=== PATIENT | male | born 1965 | race Caucasian/White ===

== ENCOUNTER 2019-10-04 14:32 | Observation (INO) ==
--- NOTE | 2019-10-04 15:12 | EKG Report ---
Test Performed on : 10/04/2019 2:45:52 PM Test Reason : SOB Blood Pressure : / mmHG Vent. Rate : 129 BPM Atrial Rate : 129 BPM P-R Int : 138 ms QRS Dur : 076 ms QT Int : 290 ms P-R-T Axes : 024 -20 023 degrees QTc Int : 424 ms Sinus tachycardia. Minimal voltage criteria for LVH, may be normal variant Inferior infarct , age undetermined Abnormal ECG When compared with ECG of 15-SEP-2017 09:45, Inferior infarct is now present Unconfirmed Result
--- NOTE | 2019-10-04 15:26 | Diag Imaging Result Doc PS360 ---
EXAM: CHEST-2 VIEWS 10/04/2019 HISTORY: SOB TECHNIQUE: PA and lateral chest COMMENT: There is no evidence of acute cardiac or pulmonary disease. Compared to 04/02/2019 there has been no significant change in the appearance of the chest. IMPRESSION: No evidence of acute disease. Electronically signed by Michele Snyder 10/04/2019 3:23 PM
[2019-10-04 15:37] LABS: BASO# 0.02 X1000 (0.0-0.2); BASO% 0.2 % (0.0-0.8); HEMATOCRIT 50.9 % (42.0-52.0); HEMOGLOBIN 16.6 g/dL (14.0-18.0); IMM GRAN# 0.02 X1000 (0.0-0.04); IMM GRAN% 0.2 % (0.0-0.5); LYMPH# 2.29 X1000 (1.2-3.4); LYMPH% 22.8 % (20.5-51.1); MCHC 32.6 g/dL (33-37); MCV 82.9 FL (81-99); MONO# 0.81 X1000 (0.11-0.59); MONO% 8.1 % (1.7-9.3); MPV 9.3 FL (7.4-10.4); NEUT% 67.7 % (42.2-75.2); PLT 289 X1000 (130-400); RBC 6.14 XMIL (4.7-6.1); RDW 14.7 % (11.5-14.5); WBC 10.04 X1000 (4.8-10.8)
[2019-10-04 15:39] LABS: INR 1.16
[2019-10-04 15:40] LABS: PTT 33.1 Seconds (22.3-41.8)
[2019-10-04 15:48] LABS: ALB/GLOB RATIO 1.8; ALBUMIN 4.6 g/dL (3.5-5.0); CALCIUM 9.7 mg/dL (8.8-10.2); CREATININE 1.3 mg/dL (0.7-1.2); POTASSIUM 5.1 mmol/L (3.5-5.1); TOTAL BILIRUBIN 0.95 mg/dL (0.20-1.00); TOTAL PROTEIN 7.1 g/dL (6.3-8.3)
--- NOTE | 2019-10-04 16:24 | PROVIDER DOCUMENTATION ---
HPI-Respiratory General - General Chief Complaint: Shortness of Breath Stated Complaint: SOB,DVT,HX OF PULMONARY EMBOLIUS Time Seen by Provider: 10/04/19 14:40 Source: patient Allergies/Adverse Reactions: Patient Allergies Allergy/AdvReac Type Severity Reaction Status Date / Time No Known Allergies Allergy Verified 09/14/17 09:36 Home Medications: Home Medication List Medication Instructions Recorded Confirmed Last Taken Type Allopurinol [Zyloprim] 300 mg PO DAILY 09/14/17 10/04/19 09/10/17 History Apixaban [Eliquis] 5 mg PO BID 09/14/17 10/04/19 09/10/17 History Cartilage/Collagen/Bor/Hyalur 1 each PO DAILY 09/14/17 10/04/19 09/10/17 History [Move Free Ultra Tablet] Glyburide/Metformin HCl 1 tab PO BID 09/14/17 10/04/19 09/10/17 History [Glucovance 2.5/500 mg Tablet] Potassium Citrate [Potassium 10 meq PO TID 09/14/17 10/04/19 09/10/17 History Citrate ER] Buspirone HCl 10 mg PO DAILY 10/04/19 10/04/19 Unknown History Gabapentin 100 mg PO BID 10/04/19 10/04/19 Unknown History Insulin Glargine,Hum.rec.anlog 15 units SQ QHS 10/04/19 10/04/19 Unknown History [Lantus Solostar] Meloxicam 7.5 mg PO DAILY 10/04/19 10/04/19 Unknown History Ranitidine [Zantac] 150 mg PO DAILY 10/04/19 10/04/19 Unknown History Testosterone Enanthate [Xyosted] 75 mg SQ ORDERED 10/04/19 10/04/19 Unknown History - History of Present Illness-Resp Nature of Presenting Problem: Patient is a 54 yowm who complains of intermittent chest pain described as "sharp" and SOB x 1 week. Hx of dvt/PE, on Eliquis. He denies any other complaints and is in no apparent distress. Quality of Pain: reports: sharp Timing: reports: still present Exposure: reports: unknown cause Cough Quality/Degree: reports: no cough Episode Frequency: frequent episodes Current Respiratory Medication Therapy: Initiated none Modifying Factors: improves with: nothing Review of Systems - Adult - REVIEW OF SYSTEMS - ADULT Constitutional: reports: no symptoms reported. denies: chills, fever Eyes: reports: no symptoms reported Ears, Nose, Mouth & Throat: reports: no symptoms reported Cardiovascular: reports: see HPI. denies: edema Respiratory: reports: see HPI Gastrointestinal: reports: no symptoms reported Genitourinary: reports: no symptoms reported Musculoskeletal: reports: no symptoms reported Integumentary: reports: no symptoms reported Neurological: reports: no symptoms reported Psychiatric: reports: no symptoms reported Endocrine: reports: no symptoms reported Hematologic/Lymphatic: reports: no symptoms reported Allergic/Immunologic: reports: no symptoms reported All Other Systems: Reviewed and Negative Past History - Adult - PAST MEDICAL HISTORY-ADULT Review of Records: reports: Old Records Reviewed, Nursing Assessment Review, Medications Reviewed, Social history reviewed & non-contributory. Major Childhood Illnesses: reports: denies history Cardiovascular: reports: blood clots, HTN Respiratory: reports: other (PE) Gastrointestinal: reports: denies history Genitourinary: reports: kidney stones Musculoskeletal: reports: arthritis Neurological: reports: denies history Psychiatric: reports: denies history Endocrine/Immune: reports: Diabetes Diabetes Type: Type 2 Diabetes controlled by:: Insulin Dependent Other Conditions: reports: denies history - PRIOR SURGERIES/PROCEDURES Surgical/Procedure History: reports: tonsillectomy, orthopedic (extremity) (Left foot surgery) - IMMUNIZATION STATUS Childhood Immunizations: See Nurse Assessment Flu Vaccine: See Nurse Assessment - FAMILY HISTORY Family History: reviewed, not pertinent - SOCIAL HISTORY Smoking: non-smoker Physical Exam-General - PHYSICAL EXAM-ADULT Initial Vital Signs Reviewed: Yes - CONSTITUTIONAL General Appearance: alert, no apparent distress. negative: lethargic, slow to respond - EYES Eyes: PERRL/EOMI, pink conjunctivae - HEAD, EARS, NOSE, MOUTH & THROAT HENMT: normocephalic/atraumatic, moist mucous membranes - NECK Neck: full range of motion, supple, normal inspection - RESPIRATORY Respiratory: chest non-tender, lungs clear, normal breath sounds, no respiratory distress, no accessory muscle use - CARDIOVASCULAR Cardiovascular: normal peripheral pulses, regular rate, rhythm, no edema, no gallop, no JVD, no murmur - GASTROINTESTINAL (ABDOMEN) Abdominal Exam: normal bowel sounds, non tender, soft, no pulsatile mass - MUSCULOSKELETAL Back Exam: normal inspection Extremity: normal range of motion, non-tender, normal gait, normal inspection - SKIN Integumentary: normal color, warm/dry. negative: cyanosis, diaphoresis, jaundice, mottled, pallor - NEUROLOGIC Neurologic: grossly normal, no motor/sensory deficits - PSYCHIATRIC Psych/Mental Status: normal mood/affect, normal thought content, normal thought process, oriented x 3 - HEART Score HEART Score: History: Moderately Suspicious HEART Score: ECG: Non-Specific Repolarization Disturbance/LBBB/PM HEART Score: Age: 45-65 Years HEART Score: Risk Factors for Atherosclerotic Disease: > or = 3 Risk Factors or History of Atherosclerotic Disease HEART Score: Troponin: < or = Normal Limit Total HEART Score:: 5 Progress - PLAN OF CARE/RESULTS Progress/Plan/Lab Results: Vital Signs - 8 hr 10/04/19 14:35 Temperature 97.9 F Pulse Rate 99 H Respiratory Rate 18 Blood Pressure 170/104 O2 Sat by Pulse Oximetry 96 Laboratory Results - last 24 hr 10/04/19 10/04/19 10/04/19 15:04 15:04 15:04 WBC 10.04 RBC 6.14 H Hgb 16.6 Hct 50.9 MCV 82.9 MCH 27.0 MCHC 32.6 L RDW Std Deviation 14.7 H Plt Count 289 MPV 9.3 Immature Gran % (Auto) 0.2 Neut % (Auto) 67.7 Lymph % (Auto) 22.8 [place] % (Auto) 8.1 Eos % (Auto) 1.0 Baso % (Auto) 0.2 Immature Gran # (Auto) 0.02 Neut # (Auto) 6.80 H Lymph # (Auto) 2.29 [place] # (Auto) 0.81 H Eos # (Auto) 0.10 Baso # (Auto) 0.02 PT 15.0 INR 1.16 PTT (Actin FS) 33.1 D-Dimer, Quantitative < 0.27 Sodium Potassium Chloride Carbon Dioxide Anion Gap BUN Creatinine Estimated GFR/1.73 m2 BUN/Creatinine Ratio Glucose Calculated Osmolality Calcium Total Bilirubin AST ALT Alkaline Phosphatase Troponin T < 0.010 Hgf-[id number]-Iakwwxtzhoj Pept Total Protein Albumin Globulin Albumin/Globulin Ratio 10/04/19 10/04/19 15:04 15:04 WBC RBC Hgb Hct MCV MCH MCHC RDW Std Deviation Plt Count MPV Immature Gran % (Auto) Neut % (Auto) Lymph % (Auto) [place] % (Auto) Eos % (Auto) Baso % (Auto) Immature Gran # (Auto) Neut # (Auto) Lymph # (Auto) [place] # (Auto) Eos # (Auto) Baso # (Auto) PT INR PTT (Actin FS) D-Dimer, Quantitative Sodium 134 L Potassium 5.1 Chloride 96 L Carbon Dioxide 24 L Anion Gap 14 BUN 20 Creatinine 1.3 H Estimated GFR/1.73 m2 57 BUN/Creatinine Ratio 15 Glucose 395 H Calculated Osmolality 287 Calcium 9.7 Total Bilirubin 0.95 AST 23 ALT 25 Alkaline Phosphatase 96 Troponin T [id number]-[id number]-Aqxvvrkzcdj Pept < 5 L Total Protein 7.1 Albumin 4.6 Globulin 2.5 Albumin/Globulin Ratio 1.8 Orders Category Date Time Status Cardiac Monitoring DIRECTED Care 10/04/19 14:53 Active Nursing- Obtain EKG ONCE Care 10/04/19 14:53 Active Saline Loc NOW Care 10/04/19 14:53 Active CHEST-2 VIEWS [RAD] Stat Exams 10/04/19 14:[address] THORAX W/O CONTRAST [CT] Routine Exams 10/04/19 17:34 Ordered BNP [PRO B-NATRIURETIC PEPTIDE] Stat Lab 10/04/19 15:04 Completed CBC WITH DIFF [HEME] Stat Lab 10/04/19 15:04 Completed COMPREHENSIVE METABOLIC PANEL [CHEM] Stat Lab 10/04/19 15:04 Completed D-DIMER [COAG] Stat Lab 10/04/19 15:04 Completed PROTIME WITH INR [COAG] Stat Lab 10/04/19 15:04 Completed PTT [COAG] Stat Lab 10/04/19 15:04 Completed TROPONIN T Stat Lab 10/04/19 15:04 Completed EKG [EKG] Stat Ther 10/04/19 14:53 Draft Transfer/Admit Order [TRANSFER] Routine Transfer 10/04/19 17:38 Ordered Result Diagrams: 10/04/19 15:04 10/04/19 15:04 - EKG 1 Time of EKG reading by physician:: 14:47 EKG Read and Signed by:: Cristi Haley EKG Interpretation (*Must complete 3 of following elements*): Abnormal Rate: 129 Rhythm: sinus tachycardia QRS: normal - XRAY 1 XRAY Study: Chest ([facility] - [address], [address], [place] [address] [facility] - [address] [place] [address] Department of Imaging Patient: MOY DISLA Date: 10/04/19#: [id number] : 1965ADM Status: PRE ERAcct#: [id number] Age/Sex: 54/MRoom/Bed: Loc: ED Ordering Physician: Cliff Hastings Family Physician: Daquan Crawley MD Reason for Procedure: SOB Signed EXAM: CHEST-2 VIEWS 10/04/2019 HISTORY: SOB TECHNIQUE: PA and lateral chest COMMENT: There is no evidence of acute cardiac or pulmonary disease. Compared to 04/02/2019 there has been no significant change in the appearance of the chest. IMPRESSION: No evidence of acute disease. Electronically signed by Michele Snyder 10/04/2019 3:23 PM 10/04/19 1523 Interpreting Physician: Michele Snyder MD Dictated Date/Time: 10/04/19 1523 cc: Cliff Hastings; Daquan Crawley MD) - CONSULTS/PCP/HOSPITALIST Notification #1 *Consult/PCP/Hospitalist*: LEEANNA Esposito [employer] OPERATOR Time Discussed: 17:01 Reason/Comments: admission- cp, SOB Consult Disposition: Admit Departure - Departure Date of Disposition Decision: 10/04/19 Time of Disposition Decision: 17:01 DIAGNOSIS: SOB (shortness of breath) Chest pain Qualifiers: Chest pain type: unspecified Qualified Code(s): R07.9 - Chest pain, unspecified Disposition: ADMITTED INPATIENT 09 Certified Medical Emergency: Emergent Condition: Stable Referrals and Follow-Ups: Daquan Crawley MD [Primary Care Provider] - - Critical Care Note This patient required my direct & personal management of CC.: No Attestation - Physician/ WILD Attestation Patient care was provided by Advanced Practice Provider:: Yes Advanced Practice Provider:: Cliff Hastings Advanced Practice Provider documentation review:: The Mid-level provider documentation, treatment plan and medical decision making was reviewed by the physician who agrees with all treatment and medical decision making by the MLP. The physician spent face to face time with patient:: No Advanced Practice Provider documentation review:: Supervising physician onsite and consulted in the evaluation and care of this patient. The physician did not have a face to face encounter with the patient.
[2019-10-04] MEDS ORDERED: TYLENOL PO PRN (18:23)
[2019-10-04] MEDS ORDERED: ZOFRAN IV PRN (18:23)
[2019-10-04] MEDS ORDERED: NS 1,000 ML IV SCH (18:23)
--- NOTE | 2019-10-04 20:16 | Diag Imaging Result Doc PS360 ---
EXAM: CT THORAX W/O CONTRAST 10/04/2019 HISTORY: lung mass TECHNIQUE: This exam was performed using automated exposure control, adjustment of mA or kV according to patient size, and/or use of iterative reconstruction technique. COMMENT: There are granulomata in the liver and spleen. There is no evidence of acute cardiac or pulmonary disease. There are granulomata present in the left hilum. There are no abnormal fluid collections. The regional skeleton is intact. IMPRESSION: No evidence of acute disease. No evidence of lung mass. Electronically signed by Michele Snyder 10/04/2019 8:13 PM
[2019-10-04] MEDS ORDERED: GLYBURIDE PO SCH (21:00)
[2019-10-04] MEDS ORDERED: LANTUS INSULIN SUBQ SCH (21:00)
[2019-10-04] MEDS ORDERED: METFORMIN HCL PO SCH (21:00)
[2019-10-04] MEDS: NEURONTIN PO SCH (21:03)
[2019-10-04] MEDS: ELIQUIS PO SCH (21:03)
[2019-10-04] MEDS: HUMALOG SUBQ SCH (22:15)
--- NOTE | 2019-10-04 22:33 | HISTORY AND PHYSICAL ---
PRIMARY CARE PROVIDER: Dr. Daquan Crawley. CHIEF COMPLAINT: Dyspnea. HISTORY OF PRESENT ILLNESS: Mr. Linares is a 54-year-old gentleman who carries a past medical history of recent small intestine cancer. I believe he had a resection. He does not require any further treatment, just follows up every 6 weeks with labs. Leiden Factor V, polycythemia, diabetes mellitus type 2, uncontrolled; recently started on Lantus, gout, osteoporosis, DVT, PE, on Eliquis. Reported over the last week, he has had a sinus infection. He has not been on any antibiotics. He has been short of breath. He has had intermittent sharp chest pains that have lasted about 3 seconds, nonradiating. At times, he has become diaphoretic with it. Today, he could feel his heart fluttering. There has been no associated dizziness. Nonradiating. The only new medications that he has is a new brand of testosterone. He went to see his PCP today, Dr. Crawley, because this felt like his PE that he had in the past. He was sent to the ED to be evaluated. His D-dimer was less than 0.27. His chest x-ray did not show any acute abnormalities. He was initially hypertensive, 170/104; however, now his blood pressure is in the 140s. He was initially tachycardic. He is now in the 90s. Given his risk factors, we will monitor him overnight to rule out any atypical pneumonia, continue to trend his cardiac enzymes, and check a CT of the chest. PAST MEDICAL HISTORY: 1. Leiden Factor V. 2. Polycythemia. 3. Recent small intestine cancer with resection, not currently on any treatments. 4. Diabetes mellitus type 2, insulin dependent, uncontrolled. He said his last hemoglobin A1c was 10. 5. Gout. 6. Osteoarthritis. 7. DVT, PE, on Eliquis. HOME MEDICATION: Eliquis, allopurinol, gabapentin, metformin, Lantus, testosterone. REVIEW OF SYSTEMS: A 12-point review of systems completed and negative, except for those mentioned in the HPI. There is no fever, no chills, no cough. No abdominal pain. No nausea, vomiting, or diarrhea. PHYSICAL EXAMINATION: VITAL SIGNS: Temperature is 97.9 degrees, heart rate 99, respirations 18, blood pressure was in the 140s, O2 of 96% on room air. GENERAL: Mr. Linares is a pleasant, 54-year-old male, who is lying on the stretcher in no acute distress. HEENT: Atraumatic, normocephalic. PERRL. NECK: Supple. Trachea midline. CARDIOVASCULAR: S1, S2 appreciated. No murmurs, gallops, or rubs noted. RESPIRATORY: Lung sounds clear bilaterally. GASTROINTESTINAL: Soft, nontender, nondistended. Positive bowel sounds in 4 quadrants. EXTREMITIES: Lower extremities are negative for edema. There is no calf tenderness. NEUROLOGIC: No focal deficits noted. DIAGNOSTIC DATA: Chest x-ray: No evidence of acute disease. EKG: Sinus tachycardia. LABORATORY DATA: White count 10, hemoglobin and hematocrit 16 and 50, platelet count is 289,000. Sodium 134, potassium 5.1, BUN 20, creatinine 1.3, blood glucose is 395. Troponin less than 0.010. ASSESSMENT AND PLAN: 1. Atypical chest pain. We will rule out any walking pneumonia or pneumothorax. We will continue to trend his cardiac enzymes. 2. Dyspnea. See #1. 3. Factor V and polycythemia. We will continue with his home Eliquis. 4. Recent diagnosis of small intestine cancer, status post resection, not on any treatment. 5. Diabetes mellitus, uncontrolled. We will continue on home regimen and sliding scale with patterned blood sugars. 6. Gout. 7. Osteoarthritis. 8. Previous history of deep vein thrombosis and pulmonary embolus. Continue Eliquis. 9. Further recommendations to follow physician evaluation, laboratory and diagnostic data. Dictated by VERNA Gutierres for Armani Yates MD cc: MD Daquan Montes De Oca MD
[2019-10-05] MEDS: HUMALOG SUBQ SCH ×2 (06:39→11:16)
[2019-10-05 06:52] LABS: HEMOGLOBIN A1C 9.9 % (4.8-6.0)
[2019-10-05 07:28] LABS: AGAP 14; BUN 16 mg/dL (8-22); CALCIUM 8.9 mg/dL (8.8-10.2); CHLORIDE 100 mmol/L (98-107); COSMO 281; CREATININE 1.1 mg/dL (0.7-1.2); ESTIMATED GFR > 60; GLUCOSE 271 mg/dL (70-104); POTASSIUM 5.7 mmol/L (3.5-5.1); SODIUM 135 mmol/L (136-145); TCO2 21 mmol/L (25-35)
--- NOTE | 2019-10-05 07:45 | EKG Report ---
Test Performed on : 10/05/2019 07:31:07 AM Test Reason : CP Blood Pressure : / mmHG Vent. Rate : 073 BPM Atrial Rate : 073 BPM P-R Int : 124 ms QRS Dur : 088 ms QT Int : 360 ms P-R-T Axes : 008 -02 -10 degrees QTc Int : 396 ms Normal sinus rhythm. Minimal voltage criteria for LVH, may be normal variant Inferior infarct (cited on or before 04-OCT-2019) Abnormal ECG When compared with ECG of 04-OCT-2019 14:45, (Unconfirmed) Vent. rate has decreased BY 56 BPM T wave inversion now evident in Inferior leads Unconfirmed Result
[2019-10-05] MEDS ORDERED: GLUCOPHAGE PO SCH (08:00)
[2019-10-05] MEDS ORDERED: DIABETA PO SCH (08:00)
[2019-10-05] MEDS ORDERED: ZYLOPRIM PO SCH (09:00)
[2019-10-05] MEDS ORDERED: MOBIC PO SCH (09:00)
[2019-10-05] MEDS ORDERED: ZANTAC PO SCH (09:00)
[2019-10-05] MEDS ORDERED: BUSPAR PO SCH (09:00)
[2019-10-05] MEDS ORDERED: UROCIT-K PO SCH (09:00)
--- NOTE | 2019-10-05 09:13 | Diag Imaging Result Doc PS360 ---
CT ANGIOGRM PULMONARY ARTERIES - 10/05/2019 INDICATION: chest pain TECHNIQUE: Axial CT images were obtained after administering intravenous contrast. Coronal MIP images were generated. COMPARISON: 10/10/2015 FINDINGS: There is a tiny irregular filling defect versus mixing artifact in the left main pulmonary artery. Otherwise the pulmonary vasculature is normal. Heart size is normal. No adenopathy. There is diverticulosis of the sigmoid colon. Otherwise upper abdominal images are unremarkable. The lungs and airways are clear. Bones are intact and normally mineralized. IMPRESSION: Tiny filling defect in the left main pulmonary artery. The appearance is atypical. This may represent a tiny pulmonary embolus versus simply mixing artifact. Given the fact that the patient has a negative d-dimer, this is most likely artifact. Otherwise no acute disease. This exam was performed using automated exposure control, adjustment of mA or kV according to patient size, and/or use of iterative reconstruction technique Electronically signed by Alvaro Savage 10/05/2019 9:11 AM
[2019-10-05] MEDS: ELIQUIS PO SCH (09:48)
[2019-10-05] MEDS: NEURONTIN PO SCH (09:49)
[2019-10-05 11:04] VITALS: BP 122/78
--- NOTE | 2019-10-06 17:16 | DISCHARGE SUMMARY ---
ADMISSION DATE: 10/04/2019 DISCHARGE DATE: 10/05/2019 CONSULTATIONS DURING THIS ADMISSION: None. IMAGING STUDIES OF SIGNIFICANCE: Chest x-ray showed no evidence of acute disease. CT scan without contrast showed no evidence of acute disease. CTA of the lung did show a tiny filling defect in the left main pulmonary artery, which may represent a tiny pulmonary embolism. ADMISSION DIAGNOSES: 1. Atypical chest pain. 2. Dyspnea. 3. Factor V Leiden heterozygous deficiency. 4. Polycythemia vera. 5. History of neuroendocrine intestinal cancer. 6. Gout. DISCHARGE DIAGNOSES: 1. Chest pain secondary to pulmonary embolus. 2. Factor V Leiden deficiency. 3. Polycythemia vera. 4. History of small intestine neuroendocrine tumor. 5. Gout. 6. Osteoarthritis. DISCHARGE MEDICATIONS: 1. Apixaban 5 mg b.i.d. 2. Allopurinol 300 mg p.o. daily. 3. Glucovance 2.5/500 b.i.d. 4. Buspirone 10 mg p.o. daily. 5. Gabapentin 100 mg b.i.d. 6. Testosterone 75 mg subcutaneously. 7. Insulin glargine 15 units subcutaneous at bedtime. PRESENTING COMPLAINT: Chest pain. HISTORY OF PRESENT COMPLAINT: Mr. Linares is a 54-year-old, male, who has history of factor V Leiden heterozygous deficiency with polycythemia vera, and a remote neuroendocrine intestinal cancer, follows up with Dr. Way. He is supposed to be on Eliquis 5 mg b.i.d. for life. However, recently he has been taking just 2.5 b.i.d. He came in because of acute onset of chest pain. Initially, his creatinine was slightly elevated, so we could not do a CTA, and his D- dimer was also unremarkable. He was, however, started back on his 5 mg and he did okay. He was hydrated overnight. This morning, his creatinine has normalized, so we did a CT of the lung, which shows a tiny atypical filling defect in the left pulmonary artery, which could represent a PE. We think that was the cause of his presentation. This morning, he feels a lot better. He has been started back on the b.i.d. Eliquis, and we are going to discharge him to follow up with his primary oncologist, Dr. Way. Mr. Linares's hemoglobin A1c is also 9.9, which is not at target. We have advised on diet and lifestyle modifications, and also advised that he follows up with his primary care doctor to titrate his insulin. This morning, Mr. Linares refers to be feeling a whole lot better. No new complaints. His laboratory data did reveal that his troponin was trended 3 times and they were unremarkable. His EKG was also done twice, including this morning, which continued to show normal sinus rhythm, no ST-segment or T-wave abnormality. His vitals show blood pressure is 122/78, pulse of 85, respiration is 18, temperature is 97.7 degrees. He was saturating 98% on room air. He is being discharged in stable condition. TIME SPENT FOR DISCHARGE: 37 minutes. cc: MD Armani Ruvalcaba MD Naveen T. Lobo, MD
== END 2019-10-05 13:47 | disposition home or self-care (01) ==
LOC: ED 14:32 → EDIPHOLD 18:01 → INTOOBSV 18:01 → EDIPHOLD 18:39 → 4N 20:39
PROVIDERS: ATTEND Internal Medicine